=== PATIENT | female | born 1995 | race Caucasian/White ===

== ENCOUNTER 2017-01-14 01:01 | Emergency (ER) | payer SELFPAY ==
[~2017-01-14] VITALS: Ht 172.7 cm; Wt 67.1 kg
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
[~2017-01-14 01:01] MED LIST: FLAGYL PO; FLAGYL250 M1 PO; IBUPROFEN PO; LORTAB 5/500 TA1 TA1 PO; NAPROSYN500 MG PO; NO MEDICATIONS; PERCOCET 51 UDTAB 5/ DOB; PHENERGAN25 M1 PO; TYLENOL #3 PO; TYLENOL W/ CODEINE PO; VOLTAREN50 MG PO; ZITHROMAX500 MG
== END 2017-01-14 03:15 | disposition home or self-care (01) ==
LOC: SED 01:01
DX: S40.011A Contusion of right shoulder, initial encounter (principal); S00.93XA Contusion of unspecified part of head, initial encounter; S30.0XXA Contusion of lower back and pelvis, initial encounter; F17.210 Nicotine dependence, cigarettes, uncomplicated; Z88.0 Allergy status to penicillin; W22.8XXA Striking against or struck by other objects, initial encounter; Y92.410 Unspecified street and highway as the place of occurrence of the external cause
CPT/HCPCS: 73030; 99283